=== PATIENT | female | born 2000 | race Two or more races ===

== ENCOUNTER 2023-09-11 21:05 | Emergency (ER) | payer MEDICAID, OTHER ==
[~2023-09-11] VITALS: Ht 160 cm; Wt 85.9 kg
[2023-09-11 21:16] VITALS: BP 110/63; PULSE 82; RESP 19; O2SAT 98
== END 2023-09-12 04:19 | disposition left against medical advice (07) ==
LOC: ER 21:05
DX: O9A.211 Injury, poisoning and certain other consequences of external causes complicating pregnancy, first trimester (principal); R10.2 Pelvic and perineal pain; Z88.0 Allergy status to penicillin; Z3A.01 Less than 8 weeks gestation of pregnancy; V43.52XA Car driver injured in collision with other type car in traffic accident, initial encounter; Y93.89 Activity, other specified; Y92.89 Other specified places as the place of occurrence of the external cause; Y99.8 Other external cause status
CPT/HCPCS: 36415; 76700; 76801; 84702